=== PATIENT | female | born 1960 | race Hispanic/Latino ===

== ENCOUNTER 2020-12-31 10:28 | Emergency (ER) | payer MEDICARE ==
[~2020-12-31] VITALS: Ht 152.4 cm; Wt 61.2 kg
[2020-12-31] MEDS ORDERED: HYDROCODONE/ACETAMINOPHEN 5/325 MG TAB PO ONE (11:30)
[2020-12-31] MEDS ORDERED: SOLU-MEDROL 125MG VIAL IM ONE (11:30)
[2020-12-31] MEDS ORDERED: CEFTRIAXONE 1G VIAL IM ONE (11:30)
[2020-12-31] MEDS ORDERED: IBUPROFEN 600 MG TABLET PO ONE (11:30)
[2020-12-31] MEDS ORDERED: METH4TAB3 PO (12:19)
[2020-12-31] MEDS ORDERED: ACET1TAB25 PO (12:19)
[2020-12-31] MEDS ORDERED: AMOX-429 PO (12:19)
[2020-12-31 12:36] VITALS: BP 122/71
== END 2020-12-31 12:38 | disposition home or self-care (01) ==
LOC: EDH 10:28
DX: K04.7 Periapical abscess without sinus (principal); L03.211 Cellulitis of face; Z98.890 Other specified postprocedural states
CPT/HCPCS: 96372 ×2; 99284; J0696; J2930